=== PATIENT | female | born 1980 | race Caucasian/White ===

== ENCOUNTER 2022-01-20 13:15 | Outpatient (CLI) | payer OTHER | END 2022-01-20 13:16 | disposition home or self-care (01) | LOC: LABBT 13:15 | PROVIDERS: ATTEND Plastic Surgery | DX: Z20.822 Contact with and (suspected) exposure to COVID-19 (principal) | CPT/HCPCS: 87811 ==

== ENCOUNTER 2022-01-25 05:47 | Day surgery (SDC) | payer BC ==
[2022-01-22 09:36] VITALS: BMI 33.3
[2022-01-25] MEDS ORDERED: SUGAMMADEX SODIUM 200 MG/2 ML VIAL ONE (06:25)
[2022-01-25] MEDS ORDERED: Dexmedetomidine 200 MCG/2 ML VIAL ONE (06:25)
[2022-01-25] MEDS ORDERED: Meperidine HCl/PF 25 MG/ML VIAL ONE (06:25)
[2022-01-25] MEDS ORDERED: Famotidine/PF 20 mg/2ml Vial ONE ×2 (06:26→06:53)
[2022-01-25] MEDS ORDERED: Heparin 5,000 UNITS/ML VIAL ONE (06:30)
[2022-01-25] MEDS ORDERED: CEFAZOLIN 2 GM VIAL ONE (06:31)
[2022-01-25] MEDS ORDERED: Sodium Chloride 0.9% 100 ML ONE (06:31)
[2022-01-25] MEDS ORDERED: Fentanyl 100 MCG/2 ML VIAL ONE ×4 (06:37→11:23)
[2022-01-25] MEDS ORDERED: Bupivacaine 0.25% HCL 30 ML VIAL ONE (06:51)
[2022-01-25] MEDS ORDERED: EPINEPHrine 1 MG/ML AMP ONE (06:51)
[2022-01-25] MEDS ORDERED: Midazolam HCl 2 mg/2 ml Vial ONE (06:53)
[2022-01-25] MEDS ORDERED: Metoclopramide HCl 10 MG/2 ML VIAL ONE (06:55)
[2022-01-25] MEDS ORDERED: Ondansetron PF 4 MG/2 ML Vial ONE ×2 (06:55→10:53)
[2022-01-25] MEDS ORDERED: Dexamethasone 20 MG/5 ML VIAL ONE (06:55)
[2022-01-25] MEDS ORDERED: PHENYLEPHRINE-NS 100 MCG/ML 10 ML SYRINGE ONE (06:55)
[2022-01-25] MEDS ORDERED: PROPOFOL 200 MG/20 ML VIAL ONE (06:55)
[2022-01-25] MEDS ORDERED: Rocuronium Bromide 10 MG/ML (10ML VIAL) ONE (06:55)
[2022-01-25] MEDS ORDERED: Promethazine HCl 25 MG/ML VIAL ONE (11:26)
[2022-01-25] MEDS ORDERED: Morphine 2 MG/ML VIAL ONE (11:46)
[2022-01-25] MEDS ORDERED: HYDROcodone/Acetaminophen 5/325 mg Tablet ONE (12:05)
== END 2022-01-25 13:05 | disposition home or self-care (01) ==
LOC: SDC 05:47
PROVIDERS: ATTEND Plastic Surgery
PROC: 0HBV0ZZ Excision of Bilateral Breast, Open Approach (ICD-10-PCS; principal; 2022-01-25)
DX: N60.21 Fibroadenosis of right breast (principal); N60.22 Fibroadenosis of left breast; N60.31 Fibrosclerosis of right breast; N60.32 Fibrosclerosis of left breast; N62 Hypertrophy of breast; Z79.899 Other long term (current) drug therapy; Z88.8 Allergy status to other drugs, medicaments and biological substances
CPT/HCPCS: 88305; J0171; J0690; J1644; J2175; J2250; J2270; J2405; J2550; J3010; J3490; S0020; S0028